=== PATIENT | male | born 1985 | race Caucasian/White ===

== ENCOUNTER 2018-01-26 07:15 | Inpatient (IN) | payer OTHER ==
[~2018-01-26] VITALS: Ht 172.7 cm; Wt 96.2 kg
[2018-01-26 07:19] VITALS: Ht 172.7 cm; Wt 96.2 kg
[2018-01-26 07:59] LABS: BASOPHIL % 0.5 % (0-2); PLATELET COUNT 256 x10^3mcL (130-400); RED CELL DISTRIBUTION WIDTH 12.7 % (11.5-14.5)
[2018-01-26 08:38] LABS: CARBON DIOXIDE 30.6 mmol/L (21-32); CHLORIDE SERUM 103 mmol/L (98-107); CREATININE SERUM 0.9 mg/dL (0.7-1.3); GFR1 > 60 mL/min; GLUCOSE SERUM 113 mg/dL (74-106); POTASSIUM SERUM 4.1 mmol/L (3.5-5.1); SODIUM SERUM 139 mmol/L (136-145)
[2018-01-26 08:42] LABS: ALBUMIN 4.4 g/dL (3.4-5.0); ALKALINE PHOSPHATASE 59 U/L (46-116); ALT/SGPT 45 U/L (16-63); AMYLASE 30 U/L (25-115); AST/SGOT 21 U/L (15-37); BILIRUBIN TOTAL 0.6 mg/dL (0.20-1.00); LIPASE 67 IU/L (73-393); TOTAL PROTEIN, SERUM 8.1 g/dL (6.4-8.2)
[2018-01-26 09:15] LABS: AMPHETAMINE QUAL UR NONE DETECTED (NEG <=1000)
[2018-01-26] MEDS ORDERED: CRESTOR5 M1 PO (10:58)
[2018-01-26 11:20] LABS: T3 TOTAL 1.38 ng/mL
[2018-01-26 11:48] VITALS: BP 137/93
[2018-01-26 12:25] LABS: MAGNESIUM 2.3 mg/dL (1.8-2.4); PHOSPHOROUS 3.8 mg/dL (2.5-4.9)
[2018-01-26 12:38] LABS: FREE T4 1.14 ng/dL (0.76-1.46); FREE THYROXINE INDEX 3.4 ug/dL (1.4-4.5); T4(THYROXINE) 9.4 ug/dL (4.7-13.3)
[2018-01-26 14:33] VITALS: BP 137/93
[2018-01-26 17:07] LABS: microscopic required? NO
[2018-01-26 17:19] LABS: UA SPECIFIC GRAVITY <=1.005 (1.005-1.035); urine erythrocyte NEGATIVE (NEGATIVE)
[2018-01-26 17:45] VITALS: BP 99/72
[2018-01-26 21:16] VITALS: BP 138/86
[2018-01-27 05:51] VITALS: BP 129/74
[2018-01-27 06:38] LABS: CALCIUM 8.6 mg/dL (8.5-10.1); CHLORIDE SERUM 105 mmol/L (98-107); CREATININE SERUM 0.9 mg/dL (0.7-1.3); GFR1 > 60 mL/min; GLUCOSE SERUM 99 mg/dL (74-106); SODIUM SERUM 140 mmol/L (136-145)
[2018-01-27 07:34] LABS: BASOPHIL % 0.7 % (0-2); PLATELET COUNT 240 x10^3mcL (130-400); RED CELL DISTRIBUTION WIDTH 12.5 % (11.5-14.5)
[2018-01-27 09:49] VITALS: BP 124/76
[2018-01-27 13:43] VITALS: BP 129/79
[2018-01-27 15:48] VITALS: BP 129/79
== END 2018-01-27 16:30 | disposition home or self-care (01) | DRG 206 ==
LOC: ED 07:15 → DU 10:13
PROVIDERS: Emergency Medicine; Family Medicine
DX: M94.0 Chondrocostal junction syndrome [Tietze] (principal); K21.9 Gastro-esophageal reflux disease without esophagitis; J45.990 Exercise induced bronchospasm; E78.00 Pure hypercholesterolemia, unspecified; E78.5 Hyperlipidemia, unspecified; G90.8 Other disorders of autonomic nervous system; R73.03 Prediabetes; Z88.0 Allergy status to penicillin
CPT/HCPCS: 83880; 84439; 85378; G0480; J7030; Q0092